=== PATIENT | male | born 1990 | race African-American/Black ===

== ENCOUNTER 2021-12-15 16:31 | Emergency (ER) | payer SELFPAY ==
[~2021-12-15] VITALS: Ht 190.5 cm; Wt 150.0 kg
[2021-12-15 16:31] VITALS: BP 142/59
[2021-12-15] MEDS ORDERED: POLY10DR3 OS (17:24)
--- NOTE | 2021-12-15 17:29 | PHYS DOC ---
General Adult EDM: Chief Complaint: EYE PROBLEMS HPI: HPI: Patient presents to the emergency department for eye redness, itching and crusting. Patient reports that she noticed the symptoms this morning. He has been sick with a productive cough and nasal congestion. His girlfriend has also been sick with similar symptoms. He denies any shortness of breath, fevers, nausea or vomiting. Review of Systems: Review of Systems: Constitutional: See HPI Eyes: See HPI HENT: See HPI Respiratory: See HPI GI: See HPI Physical Exam: PE: Constitutional: Well developed, well nourished, no acute distress, non-toxic appearance. [] HENT: Normocephalic, atraumatic, bilateral external ears normal, oropharynx moist, no oral exudates, nose normal. [] Eyes: PERRL, EOMI, conjunctiva erythematous, crusting noted along lower lash line Neck: Normal range of motion, no tenderness, supple, no stridor. [] Cardiovascular: Normal peripheral perfusion Lungs & Thorax: Normal work of breathing, no tachypnea Abdomen: Soft and flat Skin: Warm, dry, no erythema, no rash. [] Back: No tenderness, normal range of motion Extremities: No tenderness, no cyanosis, no clubbing, ROM intact, no edema. [] Neurologic: Alert and oriented X 3, normal motor function, normal sensory function, no focal deficits noted. [] Psychologic: Affect normal, judgement normal, mood normal. [] EKG: EKG: [] Radiology/Procedures: Radiology/Procedures: [] Heart Score: C/O Chest Pain: N/A Risk Factors: Risk Factors: DM, Current or recent (<one month) smoker, HTN, HLP, family history of CAD, obesity. Risk Scores: Score 0 - 3: 2.5% MACE over next 6 weeks - Discharge Home Score 4 - 6: 20.3% MACE over next 6 weeks - Admit for Clinical Observation Score 7 - 10: 72.7% MACE over next 6 weeks - Early Invasive Strategies Course & Med Decision Making: Course & Med Decision Making Pertinent Labs and Imaging studies reviewed. (See chart for details) [] Patient resents to the emergency department for left eye redness, itching and crusting. Physical exam is consistent with conjunctivitis. Patient be treated with antibiotic eyedrops. Patient educated on hand hygiene. I discussed with patient all findings and diagnostic testing as well as the need to follow-up with PCP for further evaluation and treatment or return to the ER if any new or worsening symptoms. Strict return precautions were also discussed at length. Patient voiced understanding and agreement with the plan. Patient is hemodynamically stable at the time of disposition. Dragon Disclaimer: Dragon Disclaimer: This electronic medical record was generated, in whole or in part, using a voice recognition dictation system. Departure Departure: Impression: Primary Impression: Conjunctivitis Qualified Codes: H10.32 - Unspecified acute conjunctivitis, left eye Disposition: HOME / SELF CARE / HOMELESS Condition: GOOD Referrals: PCP,NO (PCP) Patient Instructions: Conjunctivitis (Viral and Bacterial) Additional Instructions: You are seen in the emergency department and were noted to have pinkeye. This to be treated with antibiotic eye drops please use this as directed. Avoid rubbing your eyes and practice good hand hygiene. Follow-up with your primary care provider within a week. Return to the emergency department if you have any new emergent concerns. Scripts Polymyxin B Sulf/Trimethoprim (POLYMYXIN B-TMP EYE DROPS) 10 Ml Drops 1 DROP OS QID for infection for 7 Days, #10 ML 0 Refills Prov: ADA BOOTH APRN 12/15/21 ADA BOOTH APRN December 15, 2021 17:29
== END 2021-12-15 17:36 | disposition home or self-care (01) ==
LOC: ER 16:31
DX: H10.32 Unspecified acute conjunctivitis, left eye (principal); R09.81 Nasal congestion; R05.9 Cough, unspecified
CPT/HCPCS: 99283